=== PATIENT | male | born 1950 | race Caucasian/White ===

== ENCOUNTER 2018-03-20 21:07 | Emergency (ER) | payer OTHER ==
[2018-03-20 22:25] LABS: BASOPHILS % (AUTO) 0.6 % (0.0-5.0); EOSINOPHILS % (AUTO) 0.9 % (0.0-8.0); HEMATOCRIT 38.6 % (42-54); MEAN CORPUSCULAR HEMOGLOBIN 32.2 pg (27.0-33.0); MEAN CORPUSCULAR HGB CONC 34.5 g/dL (32.0-36.0); MEAN CORPUSCULAR VOLUME 93.1 fL (79-99); MONOCYTES % (AUTO) 11.4 % (3.0-13.0); NEUTROPHILS % (AUTO) 70.1 % (40.0-77.0); PLATELET COUNT (AUTO) 256 K/uL (130-400); RED BLOOD CELL COUNT(AUTO) 4.14 MIL/uL (4.50-6.20); WHITE BLOOD COUNT (AUTO) 8.3 K/uL (4.8-10.8)
[2018-03-20 22:31] LABS: CREATININE 1.1 mg/dL (0.5-1.5); POTASSIUM 3.7 mmol/L (3.5-5.1)
[2018-03-20 22:36] LABS: ALBUMIN 3.2 g/dL (3.5-5.0); BILIRUBIN,TOTAL 0.3 mg/dL (0.2-1.0); TOTAL PROTEIN, SERUM 6.2 g/dL (6.0-8.3)
[2018-03-20 22:44] LABS: CREATINE KINASE, TOTAL 116 U/L (21-232); MYOGLOBIN 84 ng/mL (10-92); TROPONIN I < 0.04 ng/mL (0.00-0.06)
== END 2018-03-21 00:58 | disposition home or self-care (01) ==
LOC: EDH 21:07
DX: R55 Syncope and collapse (principal); R00.2 Palpitations
CPT/HCPCS: 36415; 71046; 80053; 82550; 82553; 83874; 84484; 85025; 93005; 96360; 96361; 99285; J7030

== ENCOUNTER → 2018-06-14 | Outpatient (CLI) | payer OTHER | END | disposition home or self-care (01) | LOC: RAH 08:07 | PROVIDERS: ATTEND Orthopaedic Surgery | DX: M75.101 Unspecified rotator cuff tear or rupture of right shoulder, not specified as traumatic (principal); M19.011 Primary osteoarthritis, right shoulder | CPT/HCPCS: 73221 ==

== ENCOUNTER → 2019-03-29 | Outpatient (CLI) | payer OTHER | END | disposition home or self-care (01) | LOC: RAH 10:12 | PROVIDERS: ATTEND Internal Medicine | DX: R16.0 Hepatomegaly, not elsewhere classified (principal); K76.89 Other specified diseases of liver | CPT/HCPCS: 76700 ==

== ENCOUNTER → 2019-10-18 | Outpatient (CLI) | payer OTHER ==
[~2019-10-18] MED LIST: IOHEXOL 350 MG/ML 100ML INFUS..BTL IV ONE
== END | disposition home or self-care (01) ==
LOC: RAH 08:37
PROVIDERS: ATTEND Internal Medicine Gastroenterology
DX: R93.2 Abnormal findings on diagnostic imaging of liver and biliary tract (principal); J98.11 Atelectasis; M47.815 Spondylosis without myelopathy or radiculopathy, thoracolumbar region; M19.90 Unspecified osteoarthritis, unspecified site
CPT/HCPCS: 74170; Q9967

== ENCOUNTER → 2020-02-15 | Outpatient (CLI) | payer OTHER ==
[~2020-02-15] MED LIST changes: +GADODIAMIDE 10 MMOL/20 ML VIAL IV ONE; -IOHEXOL 350 MG/ML 100ML INFUS..BTL IV ONE
== END | disposition home or self-care (01) ==
LOC: RAH 07:40
PROVIDERS: ATTEND Internal Medicine Gastroenterology
DX: R93.2 Abnormal findings on diagnostic imaging of liver and biliary tract (principal)
CPT/HCPCS: 74183; A9579

== ENCOUNTER → 2020-05-25 | Outpatient (CLI) | payer OTHER | END | disposition home or self-care (01) | LOC: RAH 13:09 | PROVIDERS: ATTEND Internal Medicine | DX: N64.4 Mastodynia (principal) | CPT/HCPCS: 76641; 77066 ==

== ENCOUNTER → 2021-01-08 | Outpatient (CLI) | payer OTHER | END | disposition home or self-care (01) | LOC: RAH 12:11 | PROVIDERS: ATTEND Internal Medicine | DX: M79.89 Other specified soft tissue disorders (principal); M77.32 Calcaneal spur, left foot | CPT/HCPCS: 73610; 73630 ==

== ENCOUNTER → 2021-01-17 | Outpatient (CLI) | payer OTHER | END | disposition home or self-care (01) | LOC: RAH 07:50 | PROVIDERS: ATTEND Internal Medicine Gastroenterology | DX: R93.2 Abnormal findings on diagnostic imaging of liver and biliary tract (principal); K76.89 Other specified diseases of liver | CPT/HCPCS: 76700 ==

== ENCOUNTER → 2022-04-30 | Outpatient (CLI) | payer OTHER | END | disposition home or self-care (01) | LOC: RAH 13:04 | PROVIDERS: ATTEND Internal Medicine | DX: R31.9 Hematuria, unspecified (principal); N39.0 Urinary tract infection, site not specified | CPT/HCPCS: 76770 ==

== ENCOUNTER 2024-10-16 10:38 | Emergency (ER) | payer OTHER ==
[~2024-10-16] VITALS: Ht 185.4 cm; Wt 113.4 kg
--- NOTE | 2024-10-16 11:04 | EKG ---
[facility] Test Date: 2024-10-16 Test Time: 10:57:46 Pat Name: CONSTANCE ONEAL Department: ED Room: Gender: M Machine Setter: og hernandez : 1950 Requested By: LAVELL DELA CRUZ Order Number: [id number] Reading MD: Kristi Haines Measurements Intervals [place] Rate: 65 P: 29 DC: 181 QRS: -38 QRSD: 100 T: 59 QT: 414 QTc: 429 Interpretive Statements Sinus rhythm Atrial premature complex Left axis deviation Compared to ECG 03/20/2018 21:13:48 Atrial premature complex(es) now present Left-axis deviation now present Sinus arrhythmia no longer present Electronically Signed On 10-17-2024 16:07:00 LAV CREWMAN by Kristi Haines Please click the below link to view image of tracing.
[2024-10-16 11:12] LABS: HEMATOCRIT 43.8 % (42-54); MEAN CORPUSCULAR HEMOGLOBIN 29.9 pg (27.0-33.0); MEAN CORPUSCULAR HGB CONC 32.6 g/dL (32.0-36.0); MEAN CORPUSCULAR VOLUME 91.4 fL (79-99); RED BLOOD CELL COUNT(AUTO) 4.79 MIL/uL (4.50-6.20); RED CELL DISTRIBUTION WIDTH 15.1 % (11.0-15.5); WHITE BLOOD COUNT (AUTO) 6.6 K/uL (4.8-10.8)
[2024-10-16 11:21] LABS: CREATININE 1.1 mg/dL (0.5-1.3); POTASSIUM 4.1 mmol/L (3.5-5.1)
[2024-10-16 11:25] LABS: ALBUMIN 3.4 g/dL (3.5-5.0); BILIRUBIN,TOTAL 0.7 mg/dL (0.2-1.0); TOTAL PROTEIN, SERUM 6.7 g/dL (6.0-8.3)
--- NOTE | 2024-10-16 11:27 | ERN ---
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 HE STATES WHEN HE IS EXERTING HIMSELF, HE WILL GET LIGHTHEADED AND WE WILL ALMOST PASS OUT. HOWEVER HE DENIES HEADACHE CHEST PAIN BACK PAIN SOB. THE ALSO STATES HE WAS DRIVING APPROXIMATELY TWO WEEKS AGO WHEN HE HAD A SIMILAR EPISODE WHILE DRIVING, AND HIT A CURB. HE HAS BEEN CUTTING BACK ON HIS BLOOD PRESSURE MEDICINES UNILATERALLY BECAUSE HIS BLOOD PRESSURE HAS BEEN GETTING LOW. HE HAS NOT RUN THIS BY HIS PRIMARY CARE PHYSICIAN OR IS [employer]'S, DR. JUDD. CURRENTLY [facility] IS 0 SPEECH IS CLEAR. HE DOES STATE WHEN HE WENT FROM A SITTING TO A STANDING POSITION HE GOT LIGHTHEADED WHILE BEING EXAMINED. Allergies: Coded Allergies: No Known Drug Allergies (Unverified Allergy, Unknown, 10/16/24) Past Medical History Past Medical History: High Cholesterol, Hypertension Surgical History: Tonsillectomy Surgical History Other: RIGHT ROTATOR CUFF, LEIDA KNEE REPLACEMENTS, LEIDA CARPAL TUNNEL, STACEY BARNARD RN Note Reviewed/Agreed w/PFSH: Yes Review of System Dictation CONSTITUTIONAL: NEGATIVE EXCEPT FOR HPI HEAD/FACE: NEGATIVE EXCEPT FOR HPI EENT: NEGATIVE EXCEPT FOR HPI RESPIRATORY: NEGATIVE EXCEPT FOR HPI GASTROINTESTINAL/ABDOMINAL: NEGATIVE EXCEPT FOR HPI GENITOURINARY: NEGATIVE EXCEPT FOR HPI MUSCULOSKELETAL: NEGATIVE EXCEPT FOR HPI INTEGUMENTARY: NEGATIVE EXCEPT FOR HPI NEUROLOGICAL/PSYCH: NEGATIVE EXCEPT FOR HPI NEAR-SYNCOPE/LIGHTHEADED HEMATOLOGIC/LYMPHATIC: NEGATIVE EXCEPT FOR HPI ALL SYSTEMS NEGATIVE, EXCEPT NOTED ABOVE. 13 POINT REVIEW OF SYSTEMS ASSESSED AND ALL NEGATIVE EXCEPT FOR ABOVE. Initial Vital Sign VS Vital Signs Date Time Temp Pulse Resp B/P (MAP) Pulse Ox O2 Delivery O2 Flow Rate FiO2 10/16/24 10:43 97.2 75 18 148/70 97 Room Air 10/16/24 10:43 0 21 Physical Exam Dictation VITAL SIGNS REVIEWED GENERAL APPEARANCE: ALERT, ORIENTED X 3, NO ACUTE DISTRESS, WELL DEVELOPED, NOURISHED. HEAD AND FACE: NON-TRAUMATIC. EYES: PERRL, PINK CONJUNCTIVAS, EYELID NO TRAUMA, ANTERIOR CHAMBER WITH ARCUS SENILIS. EARS: PINNAS INTACT AND NO SIGNS OF TRAUMA OR ERYTHEMA EAR CANALS CLEAR AND NO DISCHARGE TM NO ERYTHEMA NOSE: NO DISCHARGE, NO BLEEDING. OROPHARYNX: MOUTH NORMAL, TONGUE PINK, PHARYNX CLEAR,NO ERYTHEMA, TONSILS NO EXUDATES, NO ABSCESSES NOTED, MUCOUS MEMBRANE MOIST NECK: SUPPLE, NON-TENDER, NO THYROMEGALY, NO MASSES, NO JVD, NO BRUITS BREAST:DEFERRED CHEST:NO TENDERNESS, NO CREPITUS, NO PARADOXICAL MOVEMENT, NO RETRACTIONS LUNGS:CLEAR, WELL-VENTILATED, SYMMETRIC, NO RALES, NO WHEEZING, NO RHONCHI, NO STRIDOR, GOOD BREATH SOUNDS BILATERALLY HEART: REGULAR RATE, REGULAR RHYTHM, NO MURMUR, NO GALLOPS VASCULAR: NO PERIPHERAL EDEMA, ABDOMEN: SOFT, POSITIVE BOWEL SOUNDS, NONDISTENDED, NO GUARDING, NONTENDER, NO REBOUND, NO MASSES NO HEPATOMEGALY, NO SPLENOMEGALY, NO HITCHCOCK'S SIGN, NO HERNIAS. RECTAL: DEFERRED GENITAL: DEFERRED NEUROLOGICAL: NORMAL SPEECH, MOTOR FUNCTION INTACT, SENSORY FUNCTION INTACT MUSCULOSKELETAL: NECK NONTENDER, FULL RANGE OF MOTION, BACK NONTENDER, FULL RANGE OF MOTION, EXTREMITIES: NONTENDER, FULL RANGE OF MOTION SKIN: COLOR PINK, DRY, NO TURGOR, NO RASH, NO LACERATIONS, NO ABRASIONS, NO CONTUSIONS. LYMPHATIC: DEFERRED Results (Laboratory/Radiology) Laboratory/Radiology Laboratory Tests Test 10/16/24 11:00 10/16/24 11:30 White Blood Count 6.6 K/uL (4.8-10.8) Red Blood Count 4.79 MIL/uL (4.50-6.20) Hemoglobin 14.3 g/dL (14.0-18.0) Hematocrit 43.8 % (42-54) Mean Corpuscular Volume 91.4 fL (79-99) Mean Corpuscular Hemoglobin 29.9 pg (27.0-33.0) Mean Corpuscular Hemoglobin Concent 32.6 g/dL (32.0-36.0) Red Cell Distribution Width 15.1 % (11.0-15.5) Platelet Count 349 K/uL (130-400) Mean Platelet Volume 8.8 fL (7.5-10.5) Nucleated Red Blood Cells 0.0 % (0.0-0.19) Sodium Level 138 mmol/L (136-145) Potassium Level 4.1 mmol/L (3.5-5.1) Chloride Level 100 mmol/L (101-111) L Carbon Dioxide Level 33 mmol/L (21-32) H Blood Urea Nitrogen 20 mg/dL (7-18) H Creatinine 1.1 mg/dL (0.5-1.3) Glomerular Filtration Rate Calc 71 mL/min (>90) Random Glucose 101 mg/dL (70-105) Total Calcium 8.1 mg/dL (8.5-10.1) L Total Bilirubin 0.7 mg/dL (0.2-1.0) Aspartate Amino Transf (AST/SGOT) 35 U/L (10-37) Alanine Aminotransferase (ALT/SGPT) 51 U/L (12-78) Alkaline Phosphatase 74 U/L (50-136) Troponin I High Sensitivity 12 ng/L (4-75) Total Protein 6.7 g/dL (6.0-8.3) Albumin 3.4 g/dL (3.5-5.0) L Urine Color LIGHT-YELLOW (YELLOW) Urine Appearance CLEAR (CLEAR) Urine pH 6.0 (5.0-8.0) Urine Specific [place] 1.016 (1.001-1.031) Urine Protein NEGATIVE mg/dL (NEGATIVE) Urine Glucose (UA) NEGATIVE mg/dL (NEGATIVE) Urine Ketones NEGATIVE mg/dL (NEGATIVE) Urine Occult Blood NEGATIVE (NEGATIVE) Urine Nitrate NEGATIVE (NEGATIVE) Urine Bilirubin NEGATIVE mg/dL (NEGATIVE) Urine Urobilinogen 0.2 mg/dL (0.2-1.0) Urine Leukocyte Esterase NEGATIVE Brendon/uL INDICATION: DIZZINESS, HTN HX TECHNIQUE: CHEST 1VW COMPARISON: None FINDINGS/IMPRESSION: No acute consolidation or pleural effusion. Cardiac silhouette is within normal limits. Mild degenerative changes of the spine. The visualized upper abdomen appears unremarkable. Labs Reviewed?: Yes EKG Comment: [facility] Test Date: 2024-10-16 Test Time: 10:57:46 Pat Name: CONSTANCE ONEAL Department: [facility] Room: Gender: Male Special Education Para Professional: og hernandez : 1950 Requested By: LAVELL DELA CRUZ Order Number: [id number] Reading MD: Measurements Intervals [place] Rate: 65 P: 29 [place]: 181 QRS: -38 QRSD: 100 T: 59 QT: 414 QTc: 429 Interpretive Statements Sinus rhythm Atrial premature complex Left axis deviation Please click the below link to view image of tracing. ED Course ED Course Orders Procedure Category Date Status Time Cbc Without LAB 10/16/24 Complete Differential 10:49 Comprehensive LAB 10/16/24 Complete Metabolic Panel 10:49 Troponin I High LAB 10/16/24 Complete Sensitivity 10:49 12 Lead Ekg Tracing- EKG 10/16/24 Complete Technical 10:49 Chest 1vw RAD 10/16/24 Resulted 10:49 Orthostatic Vital CPOE 10/16/24 Transmitted Signs 11:24 Urinalysis Profile LAB 10/16/24 Complete 11:24 Vital Signs Date Time Temp Pulse Resp B/P (MAP) Pulse Ox O2 Delivery O2 Flow Rate FiO2 10/16/24 14:37 98.2 68 18 149/75 100 Room Air* 0 21 10/16/24 10:43 97.2 75 18 148/70 97 Room Air* 0 21 10/16/24 10:43 97.2 75 18 148/70 97 Room Air [id number] PATIENT IS HEMODYNAMICALLY HE WAS GIVEN THE RESULTS OF EVERYTHING THAT HE HAD BEEN DONE I MADE HIM AWARE THAT I HAVE NOT BEEN ABLE TO PERFORM ORTHOSTATIC SINCE WE DO NOT HAVE HIM IN THE BACK WITH THE NURSE. HE SAID HE WILL GO HOME AND FOLLOW UP WITH HIS PRIMARY CARE DOCTOR, HEART Score Response (Comments) Value EKG: Repolarization changes 1 Age: > 65yrs (+2) 2 Risk Factors: 1-2 risk factors (+1) 1 Initial Troponin: Normal limit (0) 0 Total 4 Medical Decision Making MDM MDM: DIFFERENTIAL DIAGNOSIS: ANEMIA/ELECTROLYTE IMBALANCE/ACS /AMI/ARRHYTHMIA/ORTHOSTASIS RATIONALE: TESTS CONSIDERED AND ORDERED SECONDARY TO SHARED DECISION MAKING INCLUDE: LABS/EKG/RADIOLOGY PREVIOUS OUTSIDE RECORDS REVIEWED: OLD ER VISITS. RISK OF COMPLICATION AND/OR MORBIDITY OR MORTALITY OF PATIENT MANAGEMENT: NONE MEDICATIONS-PER MEDICATION RECONCILIATION NEED FOR HOSPITALIZATION: PATIENT DOES NOT MEET CRITERIA FOR HOSPITALIZATION. N O NEED FOR EMERGENCY MAJOR/MINOR SURGERY: NO THERE ARE NO SOCIAL CONCERNS WITH THIS PATIENT. PRESCRIPTION DRUG MANAGEMENT NONE, PATIENT WAS AT FORM NOT TO WORK OUT STRENUOUSLY WITH [facility]S UNTIL HE IS CLEARED PRESCRIPTIONS WILL INCLUDE SYMPTOMATIC CARE PATIENT'S PRIOR EXTERNAL MEDICAL RECORDS FROM OTHER ER VISITS WERE REVIEWED BY ME INDICATED. PRIOR TESTING AND RESULTS FROM PREVIOUS VISITS WERE REVIEWED. PRIOR TESTS WERE TAKEN INTO ACCOUNT WITH MEDICAL DECISION MAKING AND RESOURCE UTILIZATION, INDEPENDENT HISTORIAN/HISTORIANS WERE USED TO OBTAIN COMPLETE MEDICAL HISTORY. I INDEPENDENTLY INTERPRETED THE TEST THAT WERE PERFORMED, RESULTS WERE REVIEWED BY ME AND CONSIDERED FINDINGS ON RADIOLOGY IF ORDERED. MEDICAL MANAGEMENT AND EXAMINATION INTERPRETATION DISCUSSIONS WERE HAD BY ME WITH OTHER QUALIFIED HEALTHCARE PROFESSIONALS INDICATED FOR THE PATIENT'S CARE. DX & DISP Disposition: Discharge Departure Impression: Primary Impression: Dizziness Additional Impression: Vasovagal near syncope Condition: Stable Additional Instructions: FOLLOW-UP WITH PRIMARY CARE PROVIDER IN 1 TO 2 DAYS. TAKE MEDICATIONS DIRECTED HERE IN THE EMERGENCY ROOM. OKAY TO CONTINUE HOME MEDICATIONS UNLESS OTHERWISE DISCUSSED DURING YOUR VISIT IN THE EMERGENCY ROOM TODAY. RETURN TO YOUR NEAREST EMERGENCY ROOM IF SYMPTOMS WORSEN OR IF THERE IS NO IMPROVEMENT. CALL 911 IF YOU NEED IMMEDIATE ASSISTANCE. TAKE TYLENOL OR MOTRIN [id number] NEEDED AND IF NO CONTRAINDICATIONS ARE PRESENT. INCREASE ORAL HYDRATION. A WOUND CULTURE OR URINE CULTURE WAS ORDERED HERE IN THE EMERGENCY ROOM DEPARTMENT PLEASE FOLLOW-UP WITH PRIMARY CARE PROVIDER AND ADVISE THEM TO GET REPEAT PORTS FROM OUR FACILITY. IF YOU HAD ANY JUAN A WRAP/SPLINTS THAT WERE APPLIED HERE, PLEASE DO NOT REMOVE THEM UNTIL YOU SEE YOUR PRIMARY CARE OR SPECIALTY. DO NOT WORK OUT WITH WEIGHTS UNTIL YOUR CLEARED BY YOUR PRIMARY CARE DOCTOR. Referrals: MARCELO SHARMA MD (PCP) I have reviewed the case, and I agree with, Diagnosis and Plan I performed the substantive portion of the visit. I have reviewed and personally made and approve the management plan that is documented in the notes by myself or the DARYA. I acknowledge full responsibility for the patient's manag ement plan. RADHA NELSON NP Oct 16, 2024 11:27 LAVELL DELA CRUZ MD Oct 17, 2024 12:40
[2024-10-16 11:45] LABS: APPEARANCE,URINE CLEAR (CLEAR); BILIRUBIN,URINE NEGATIVE (NEGATIVE); COLOR,URINE LIGHT-YELLOW (YELLOW); GLUCOSE, URINE (UA) NEGATIVE (NEGATIVE); KETONES,URINE NEGATIVE (NEGATIVE); LEUKOCYTE ESTERASE ,URINE NEGATIVE Leu/uL (NEGATIVE); NITRATE,URINE NEGATIVE (NEGATIVE); OCCULT BLOOD,URINE NEGATIVE (NEGATIVE); PROTEIN,URINE NEGATIVE (NEGATIVE); UROBILINOGEN,URINE 0.2 mg/dL (0.2-1.0)
[2024-10-16 11:47] LABS: ADD UA MICROSCOPIC NO
[2024-10-16 14:37] VITALS: BP 149/75; PULSE 68; RESP 18; TEMP 98.3; O2SAT 100
--- NOTE | 2024-10-16 14:55 | NUR ---
ORTHO VITALS BP SUPINE--149/71 BP SITTING--158/86 BP STANGING--163/86
== END 2024-10-16 15:01 | disposition home or self-care (01) ==
LOC: EDH 10:38
DX: R42 Dizziness and giddiness (principal); R55 Syncope and collapse; E78.00 Pure hypercholesterolemia, unspecified; I10 Essential (primary) hypertension; Z90.89 Acquired absence of other organs; Z96.653 Presence of artificial knee joint, bilateral
CPT/HCPCS: 36415; 71045; 80053; 81003; 84484; 85027; 93005; 99285

== ENCOUNTER → 2024-11-03 | Outpatient (CLI) | payer OTHER ==
[2024-11-03] MEDS: REGADENOSON 0.4 MG/5 ML PF SYG IVP ONE (13:52)
--- NOTE | 2024-11-04 08:26 | HMCSR ---
APPROVED REPORT Height: 6 ft 1in Weight: 250 lbs TEST INDICATIONS SYNCOPE AND COLLAPSE, ANGINA PECTRORIS The imaging protocol used to acquire images was Rest Tc-99m/stress Tc-99m 1 day Consent: The procedure was explained and understood by the patient. Informerd consent was witnessed Osman MAJOR RN First, low dose rest was performed then high dose stress. RESTING DATA: The resting ekg shows: NSR Rest SPECT myocardial perfusion imaging was performed in supine position 57 minutes following the int ravenous injection of 11.5 mCi of Tc-99 Sestamibi. Time of rest injection: 08:56: Date: 11/03/2024 Time of rest imagin:53: Date: 11/03/2024 PHARMACOLOGIC STRESS: Pharmacologic stress test was performed by injecting regadenoson 0.4 mg IV push followed by the intra venous injection of 32.0 mCi of Tc-99 Sestamibi. Time of stress injection: 10:22: Date: 11/03/2024 Time of stress imagin:47: Date: 11/03/2024 Heart Rate at time of stress injection: 56 bpm. Gated Stress SPECT was performed 85 minutes after stress injection. The images were gated to evaluate regional wall motion and calculate left ventricular ejection fracti on. STRESS DETAILS Reason for Termination: Infusion complete Stress Symptoms: Dyspnea; Head pressure Max HR Achieved: 81 bpm % of APMHR Achieved: 55 Max Blood Pressure: 138/72 mmHg Stress ECG: NSR Study quality was good. Lung uptake was Normal. Artifact: increased GI uptake LEFT VENTRICLE Size: The left ventricular size is normal. Systolic Function:The left ventricular systolic function is normal. Wall Motion: No regional wall motion abnormalities noted. The left ventricular ejection fraction was calculated to be 55%.TID = . LV PERFUSION The rest and stress images show normal perfusion. IMPRESSION Normal pharmacologic nuclear stress test. Global LV Function: Normal Stress ECG Summary: Normal LV Perfusion Summary: Normal Conclusion Normal pharmacologic nuclear stress test. Global LV Function: Normal Stress ECG Summary: Normal LV Perfusion Summary: Normal Low risk scan
== END | disposition home or self-care (01) ==
LOC: SHCH 08:16
PROVIDERS: ATTEND Internal Medicine Cardiovascular Disease
DX: R55 Syncope and collapse (principal); I20.9 Angina pectoris, unspecified
CPT/HCPCS: 78452; 93017; J2785; A9500 ×2

== ENCOUNTER → 2024-12-05 | Outpatient (CLI) | payer OTHER | END | disposition home or self-care (01) | LOC: SHCH 08:41 | PROVIDERS: ATTEND Internal Medicine Cardiovascular Disease | DX: I08.0 Rheumatic disorders of both mitral and aortic valves (principal); R55 Syncope and collapse | CPT/HCPCS: 93306 ==

== ENCOUNTER → 2025-01-17 | Outpatient (CLI) | payer OTHER | END | disposition home or self-care (01) | LOC: SHCH 09:20 | PROVIDERS: ATTEND Internal Medicine Cardiovascular Disease | DX: I65.23 Occlusion and stenosis of bilateral carotid arteries (principal); I73.9 Peripheral vascular disease, unspecified; I87.1 Compression of vein; I87.8 Other specified disorders of veins; I87.2 Venous insufficiency (chronic) (peripheral); R55 Syncope and collapse | CPT/HCPCS: 93880; 93925; 93970 ==